=== PATIENT | female | born 1980 | race Caucasian/White ===

== ENCOUNTER → 2021-04-24 | Emergency (ER) | payer SELFPAY ==
[~2021-04-24] VITALS: Ht 162.6 cm; Wt 70.3 kg
[~2021-04-24] MED LIST: KETOROLAC TROMETHAMINE 30 MG/ML VIAL IM ONE; KETOROLAC TROMETHAMINE 30 MG/ML VIAL ONE
== END | disposition home or self-care (01) ==
LOC: ER 05:54
DX: M54.5 Low back pain (principal); N31.9 Neuromuscular dysfunction of bladder, unspecified; F31.9 Bipolar disorder, unspecified
CPT/HCPCS: 99281; J1885